=== PATIENT | male | born 1950 | race Caucasian/White ===

== ENCOUNTER → 2016-05-12 | Outpatient (CLI) | payer BC | END | disposition home or self-care (01) | LOC: GMAB 10:12 | PROVIDERS: ATTEND Family Medicine | DX: Z00.00 Encounter for general adult medical examination without abnormal findings (principal) ==

== ENCOUNTER → 2017-06-22 | Outpatient (CLI) | payer MEDICARE, OTHER | LOC: GMAB 11:40 | PROVIDERS: ATTEND Family Medicine | DX: I10 Essential (primary) hypertension (principal); R53.83 Other fatigue; Z12.5 Encounter for screening for malignant neoplasm of prostate | CPT/HCPCS: 84403; 84443; G0103 ==

== ENCOUNTER → 2018-02-14 | Outpatient (CLI) | payer MEDICARE, OTHER ==
--- NOTE | 2018-02-18 13:39 | RAD ---
EXAM DESCRIPTION: Pelvis: CR/DR/XR CLINICAL HISTORY: HIP PN COMPARISON: Radiographs of the left knee on 02/05/2013 TECHNIQUE: One view, AP FINDINGS: No fracture dislocation. Bone density. Bilateral hip joint spaces are symmetric. Enthesophytes on the iliac crest and ischial tuberosities. Posterior bilateral fusion screws L4 and L5. No abnormal radiodense objects in the soft tissues or joint spaces. IMPRESSION: Bony hypertrophic changes as noted. Bilateral hip joint spaces are symmetric. No acute bony or joint margin abnormality. Electronically signed by: Gilmer Magaña MD 02/18/2018 1:37 PM [facility]
== END ==
LOC: RAD 08:07
PROVIDERS: ATTEND Orthopaedic Surgery
DX: M25.551 Pain in right hip (principal)

== ENCOUNTER → 2018-03-15 | Outpatient (CLI) | payer MEDICARE, OTHER ==
--- NOTE | 2018-03-15 12:57 | MRI ---
MRI right knee without contrast INDICATION: Knee pain medial side date of onset not specified TECHNIQUE: Noncontrast MR imaging right knee standard protocol FINDINGS: There is a large joint effusion with synovitis/debris. Up to grade 4 chondrosis of the junction of the medial patellar facet and patellar apex. No subchondral edema. This area measures up to 8 mm wide. Multifocal grade 4 chondrosis across the inferior trochlea midline. Previous interstitial partial tear age-indeterminate PCL. Diffuse interstitial tear ACL partial-thickness. Extensor tendons are intact with only minimal tendinosis and interstitial fissuring distal patellar tendon. Mild prepatellar and superficial infrapatellar bursitis. Ill-defined tear central posterior horn medial meniscus near the root. Osteochondral lesion with subchondral depression and diffuse adjacent marrow edema likely subchondral stress or insufficiency fracture medial femoral condyle 2.5 cm in AP dimension with diffuse grade 4 chondrosis. Diffuse fraying type tear throughout the lateral meniscus body posterior horn and anterior horn with background degenerative signal. Multifocal grade 4 chondrosis in the lateral tibiofemoral compartment. Partial medial meniscal extrusion along the medial jointline. No collateral ligament disruption. Prominent fluid and synovitis/debris popliteus sheath/recess IMPRESSION: Large joint effusion with synovitis Degenerative medial and lateral meniscal tears with partial medial meniscal extrusion Osteochondral lesion with subchondral collapse/impaction medial femoral condyle likely in the spectrum of subchondral stress/insufficiency fracture which is also the spectrum of SONK Multifocal chondrosis up to grade 4 throughout the knee with developing osteoarthrosis Previous interstitial partial tears of the ACL and PCL age-indeterminate Electronically signed by: Niraj Mendiola MD 03/15/2018 12:55 PM [facility]
== END ==
LOC: RAD 10:12
PROVIDERS: ATTEND Orthopaedic Surgery
DX: M17.11 Unilateral primary osteoarthritis, right knee (principal); M25.461 Effusion, right knee; M95.8 Other specified acquired deformities of musculoskeletal system

== ENCOUNTER → 2018-04-04 | Outpatient (CLI) | payer MEDICARE, OTHER | LOC: LAB.O 10:09 | PROVIDERS: ATTEND Orthopaedic Surgery | DX: Z01.818 Encounter for other preprocedural examination (principal) ==

== ENCOUNTER 2018-04-24 05:52 | Inpatient (IN) | payer MEDICARE, OTHER ==
--- NOTE | 2018-04-20 08:23 | HP ---
CHIEF COMPLAINT: Right knee pain. HISTORY OF PRESENT ILLNESS: Ramy is a 67-year-old male with a history of knee pain. He has had conservative measures and has failed to gain relief. Because of his ongoing pain and failure of conservative measures, he has had disruption in his daily function. As such, he has requested operative intervention. After discussing the risks, benefits and alternatives to that, he has given informed consent. PAST SURGICAL HISTORY: 1. Total knee arthroplasty. MEDICATIONS: 1. Lisinopril. 2. Atorvastatin. 3. Meloxicam. ALLERGIES: NO KNOWN DRUG ALLERGIES. FAMILY HISTORY: None pertinent to today's complaint. SOCIAL HISTORY: The patient does not drink, smoke or use any illicit drugs. REVIEW OF SYSTEMS: Negative except as indicated in the History of Present Illness. PHYSICAL EXAMINATION: VITAL SIGNS: Blood pressure 138/92. Pulse 97. Height 6'. Weight 285 pounds. MENTAL STATUS: The patient is awake, alert, and is able to give a good history and participate in the physical. The patient is oriented to person, place and time. SKIN: Normal tone and turgor. HEENT: Normocephalic, atraumatic. Pupils equal, round and reactive. Mucosal membranes are moist. NECK: Normal range of motion. No thyromegaly, no lymphadenopathy. CHEST: Normal respiratory excursion. CARDIAC: Regular rate and rhythm. No murmurs, rubs or gallops. MUSCULOSKELETAL: Both upper extremities show no significant pain with range of motion. He has intact sensation. There is no significant crepitus. Both are warm and well perfused. He has no deformity. Strength is 5/5. The left lower extremity shows full range of motion of the hip. He has good range of motion in the knee without significant discomfort. He has no deformity and no varus/valgus or anterior/posterior laxity. The right lower extremity shows pain with range of motion of the knee, but no pain with range of motion of the hip. He has intact sensation throughout the extremity. It is warm and well perfused. He has no varus/valgus or anterior/posterior laxity. He has crepitus throughout his range of motion. He has full extension and flexion is to about 115 to 120 degrees. IMAGING: X-rays show arthritis. ASSESSMENT: 1. Arthritis. PLAN: The plan at this point is for total knee arthroplasty. We have discussed the risks, benefits, and alternatives to that and the patient has given informed consent. [facility][id number] [facility]
[2018-04-24] MEDS ORDERED: SODIUM CHL 0.9% 100ML MINI-BAG 100 ML IVPB ONE (07:27)
[2018-04-24] MEDS ORDERED: LACTATED RINGERS 1,000 ML ONE ×2 (07:27→13:35)
[2018-04-24] MEDS ORDERED: ceFAZolin SODIUM 1 GM VIAL ONE ×2 (07:28→08:35)
[2018-04-24] MEDS ORDERED: VANCOMYCIN HCL INJ 1,000 MG VIAL IVPB ONE ×2 (07:28→19:50)
[2018-04-24] MEDS ORDERED: SODIUM CHLORIDE 0.9% 250ML 250 ML ONE ×2 (07:28→19:49)
[2018-04-24] MEDS ORDERED: SODIUM CHLORIDE 0.9% 100ML 100 ML IVPB ONE (07:28)
[2018-04-24] MEDS ORDERED: TRANEXAMIC ACID 1,000 MG/10 ML VIAL ONE ×2 (07:28)
[2018-04-24] MEDS ORDERED: fentaNYL CITRATE INJ 50 MCG/ML AMP ONE (08:55)
[2018-04-24] MEDS ORDERED: MORPHINE SULF *EPIDURAL* 1 MG/ML VIAL ONE (08:55)
[2018-04-24] MEDS ORDERED: MIDAZOLAM INJ 2 MG/2 ML VIAL ONE (08:55)
[2018-04-24] MEDS ORDERED: ACETAMINOPHEN IV 1000MG 100 ML ONE (10:32)
[2018-04-24] MEDS: ceFAZolin SODIUM 1 GM VIAL ONE ×2 (11:14→12:04)
[2018-04-24] MEDS: VANCOMYCIN HCL INJ 1,000 MG VIAL IVPB ONE ×2 (11:14→12:04)
[2018-04-24] MEDS: BUPIVACAINE 0.5% 30 ML VIAL INJ ONE ×2 (11:15→12:04)
[2018-04-24] MEDS: BUPIVACAINE LIPOSOME 13.3 MG/ML VIAL INJ ONE ×2 (11:15→12:04)
[2018-04-24] MEDS ORDERED: BUPIVACAINE LIPOSOME 13.3 MG/ML VIAL INJ ONE (12:15)
[2018-04-24] MEDS ORDERED: ZOLPIDEM TARTRATE 5 MG TAB PO PRN (13:01)
[2018-04-24] MEDS ORDERED: ONDANSETRON INJ 4 MG/2 ML VIAL IV PRN (13:01)
[2018-04-24] MEDS ORDERED: ACETAMINOPHEN 500 MG TAB PO PRN (13:01)
[2018-04-24] MEDS ORDERED: BISACODYL SUPPOSITORY 10 MG PR PRN (13:01)
[2018-04-24] MEDS ORDERED: CYCLOBENZAPRINE HCL 10 MG TAB PO PRN (13:01)
[2018-04-24] MEDS ORDERED: ACETAMINOPHEN 325 MG TAB PO PRN (13:01)
[2018-04-24] MEDS ORDERED: SODIUM CHLORIDE 0.9% (FLUSH) 10 ML SYG IV PRN (13:01)
[2018-04-24] MEDS ORDERED: MORPHINE SULFATE INJ 10 MG/ML VIAL IV PRN (13:01)
[2018-04-24] MEDS ORDERED: MAGNESIUM HYDROXIDE 30 ML UD PO PRN (13:01)
[2018-04-24] MEDS ORDERED: BENZOCAINE-MENTH LOZ (CEPACOL) 1 EA LOZ MT PRN (13:01)
[2018-04-24] MEDS ORDERED: DEX 5% W/NACL 0.45% 1000ML 1,000 ML IVS PRN (13:01)
[2018-04-24] MEDS ORDERED: PROMETHAZINE HCL INJ 12.5 MG in SODIUM CHLORIDE 0.9% 50ML 50 ML IVPB PRN (13:01)
[2018-04-24] MEDS ORDERED: traMADol HCL 50 MG TAB PO PRN (13:01)
[2018-04-24] MEDS ORDERED: PROMETHAZINE HCL INJ 25 MG in SODIUM CHLORIDE 0.9% 50ML 50 ML IVPB PRN (13:01)
[2018-04-24] MEDS ORDERED: TRANEXAMIC ACID INJ 1,000 MG in SODIUM CHLORIDE 0.9% 100ML 100 ML IVPB ONE (13:01)
[2018-04-24] MEDS ORDERED: TEMAZEPAM 15 MG CAP PO PRN (13:01)
[2018-04-24] MEDS ORDERED: ALUMINUM & MAGNESIUM HYDROXIDE 30 ML UD PO PRN (13:01)
[2018-04-24] MEDS ORDERED: NALOXONE HCL INJ 0.4 MG/ML VIAL IV PRN (13:01)
[2018-04-24] MEDS ORDERED: MORPHINE SULFATE INJ 10 MG/ML VIAL IM PRN (13:01)
--- NOTE | 2018-04-24 13:14 | RAD ---
EXAM DESCRIPTION: Knee,Right 2 or More Views CLINICAL HISTORY: 67 years Male, post op COMPARISON: MRI right knee 03/15/2018. TECHNIQUE: 2 views of the right knee. IMPRESSION: Status post total right knee arthroplasty. Imaged hardware appears normal in alignment and intact without fracture. No periprosthetic lucency is present to indicate hardware loosening. Postsurgical changes noted in the overlying soft tissues. Electronically signed by: Navjot Vickers MD 04/24/2018 1:13 PM [facility]
[2018-04-24] MEDS ORDERED: MORPHINE PCA 1 MG/ML 100 ML BAG IVPB SCH (13:30)
[2018-04-24] MEDS ORDERED: IV SET AND CAP CHANGE INJ INJ SCH (13:30)
[2018-04-24] MEDS ORDERED: ceFAZolin SODIUM 2 GRAMS PREMI 2 GM in PREMIX BAG 1 BAG IVPB SCH (16:00)
--- NOTE | 2018-04-24 16:09 | CONS ---
SUPERVISING PHYSICIAN: Uzair Dickey MD REASON FOR CONSULTATION: Medical Management. HISTORY OF PRESENT ILLNESS: This is a 67-year-old male patient who underwent a right total knee arthroplasty electively today with no complications. Apparently, he has had right knee pain for quite some time and tried to undergo conservative measures that had failed. As stated above, there are no intraoperative complications. He is postoperative in the med/surgical unit with no distress. He does have a little bit of nausea. The pain is controlled. PAST MEDICAL HISTORY: 1. Hypertension. 2. Hyperlipidemia. PAST SURGICAL HISTORY: 1. Knee arthroscopy. MEDICATIONS: 1. Lisinopril.10 mg p.o. daily. 2. Lipitor 10 mg p.o. daily. ALLERGIES: NO KNOWN DRUG ALLERGIES. FAMILY HISTORY: Both mother and father had cancer, he does not know what kind. SOCIAL HISTORY: The patient does not smoke, social alcohol use. No illegal drugs. REVIEW OF SYSTEMS: Other than the right knee, he has not really had any problems. PHYSICAL EXAMINATION: VITAL SIGNS: Blood pressure 128/88, heart rate 97, respiratory rate 16, temperature 97.8, oxygen saturation 96%. GENERAL: Mr. Cody is a 67 year-old male patient who is in no acute distress currently. CHEST: Lungs are clear to auscultation bilaterally. HEART: Regular rate and rhythm, normal S1 and S2. ABDOMEN: Soft, positive bowel sounds, non-tender to palpation, no organomegaly. GENITOURINARY: Exam is deferred. NEUROLOGIC: The patient is alert and oriented. EXTREMITIES: Right lower extremity is wrapped in an alexy crap as well as currently on a CPM. IMPRESSION: 1. Right knee osteoarthritis status post right total knee arthroplasty. 2. Hypertension. 3. Hyperlipidemia. PLAN: 1. At this time, the patient is admitted for postoperative knee management including physical therapy and pain control. I will resume his home medications as well and address any medical issues that arise during this admission. 2. Will check hemoglobin and hematocrit tomorrow and hopefully he will progress to where he can be discharged home in a few days. Anticoagulation has already been ordered as well and I want to be sure he gets the full anticoagulation that is recommended for postoperative knee surgery. #[id number] [facility]
[2018-04-24] MEDS: CELECOXIB 100 MG CAP PO SCH (17:21)
[2018-04-24] MEDS ORDERED: VANCOMYCIN HCL INJ 1,000 MG in SODIUM CHLORIDE 0.9% 250ML 250 ML IVPB SCH (18:00)
[2018-04-24] MEDS ORDERED: ceFAZolin SODIUM 2 GRAMS PREMI 50 ML IVPB ONE ×2 (18:18→19:50)
[2018-04-24] MEDS: ceFAZolin SODIUM 2 GRAMS PREMI 2 GM in PREMIX BAG 1 BAG IVPB SCH (18:22)
[2018-04-24] MEDS ORDERED: ENOXAPARIN SODIUM 30 MG/0.3 ML SYG SUBCU ONE (19:50)
[2018-04-24] MEDS: VANCOMYCIN HCL INJ 1,000 MG in SODIUM CHLORIDE 0.9% 250ML 250 ML IVPB SCH (20:06)
[2018-04-24] MEDS: DOCUSATE CALCIUM 240 MG CAP PO SCH (20:07)
[2018-04-24] MEDS: ENOXAPARIN SODIUM 30 MG/0.3 ML SYG SUBCU SCH (23:25)
[2018-04-25] MEDS: ceFAZolin SODIUM 2 GRAMS PREMI 2 GM in PREMIX BAG 1 BAG IVPB SCH ×2 (01:59→10:27)
[2018-04-25] MEDS ORDERED: SODIUM CHLORIDE 0.9% 250ML 250 ML ONE (08:06)
[2018-04-25] MEDS ORDERED: VANCOMYCIN HCL INJ 1,000 MG VIAL IVPB ONE (08:07)
[2018-04-25] MEDS: CELECOXIB 100 MG CAP PO SCH ×2 (08:13→17:04)
[2018-04-25] MEDS: VANCOMYCIN HCL INJ 1,000 MG in SODIUM CHLORIDE 0.9% 250ML 250 ML IVPB SCH (08:14)
[2018-04-25] MEDS: MAGNESIUM OXIDE 400 MG TAB PO SCH (08:49)
[2018-04-25] MEDS: LISINOPRIL 10 MG TAB PO SCH (08:49)
[2018-04-25] MEDS: ATORVASTATIN 10 MG TAB PO SCH (08:50)
[2018-04-25] MEDS ORDERED: ceFAZolin SODIUM 2 GRAMS PREMI 50 ML IVPB ONE (10:02)
[2018-04-25] MEDS: ENOXAPARIN SODIUM 30 MG/0.3 ML SYG SUBCU SCH ×2 (10:26→23:26)
[2018-04-25] MEDS ORDERED: raNITIdine HCL INJ 25 MG/ML VIAL IV ONE (13:20)
[2018-04-25] MEDS ORDERED: LIDOCAINE 1% 10 ML VIAL INJ ONE (13:20)
[2018-04-25] MEDS ORDERED: DEXAMETHASONE INJ 10 MG/ML VIAL IV ONE (13:20)
[2018-04-25] MEDS ORDERED: PROPOFOL 200 MG/20 ML VIAL IV ONE (13:20)
[2018-04-25] MEDS ORDERED: METOCLOPRAMIDE HCL INJ 10 MG/2 ML VIAL IV ONE (13:20)
[2018-04-25] MEDS: HYDROcodone 5MG/APAP 325MG 1 EA TAB PO PRN ×2 (13:32→23:45)
[2018-04-25] MEDS ORDERED: PANTOPRAZOLE SODIUM IV 40 MG VIAL IV SCH (15:00)
--- NOTE | 2018-04-25 17:15 | PN ---
DATE: 04/25/18 SUPERVISING PHYSICIAN: Uzair Dickey M.D. SUBJECTIVE: The patient is lying in bed. He has no complaints of nausea, vomiting, diarrhea, chest pain or shortness of breath. Feels like his therapy is going quite well. OBJECTIVE: VITAL SIGNS: Temperature 97.6, heart rate 83, blood pressure 112/69, respiratory rate 18, O2 sat 96% on room air. RESPIRATORY: Essentially clear to auscultation bilaterally. CARDIAC: Regular rate and rhythm. GASTROINTESTINAL: Abdomen is soft, nondistended, non-tender. Bowel sounds are positive. EXTREMITIES: Right leg is in the CPM machine. His dressing is secured with an Get bandage. It is dry and intact. Bilateral pedal pulses are palpable at +2. NEUROLOGIC: He is awake, alert and oriented times three. LABORATORY: Hemoglobin 13.8, hematocrit 41.7. All other labs and films have been reviewed via the EMR. ASSESSMENT: 1. Osteoarthritis of the right knee status post right total knee arthroplasty performed by Dr. Robert Reno. Postoperative day #1. 2. Hypertension. 3. Hyperlipidemia. PLAN: We will continue present supportive care. We will continue with physical therapy for strengthening and conditioning per Physical Therapy. Orthopedic issues will be per Dr. Robert Reno, orthopedic surgeon. I have encouraged good pulmonary hygiene. Will continue to monitor him closely and follow as needed. #[id number] [facility]
--- NOTE | 2018-04-25 19:09 | PN ---
DATE: 04/24/18 POSTOPERATIVE CHECK SUBJECTIVE: He is doing well and has no pain. OBJECTIVE: He is afebrile. Vital signs are stable. Dressing is clean, dry and intact. ASSESSMENT: 1. Status post total knee arthroplasty. PLAN: The plan at this point is for increasing his CPM as tolerated and begin weightbearing starting on postoperative day 1. #[id number] [facility]
--- NOTE | 2018-04-25 19:12 | PN ---
DATE: 04/25/18 SUBJECTIVE: Mr. Cody is doing well. OBJECTIVE: He is afebrile. Vital signs are stable. Dressing is clean, dry and intact. ASSESSMENT: 1. Status post total knee arthroplasty. PLAN: The plan at this point is for him to continue to increase CPM as tolerated and continue on with weightbearing. #[id number] [facility]
[2018-04-25] MEDS: DOCUSATE CALCIUM 240 MG CAP PO SCH (21:29)
[2018-04-26] MEDS: HYDROcodone 5MG/APAP 325MG 1 EA TAB PO PRN (05:17)
[2018-04-26] MEDS: CELECOXIB 100 MG CAP PO SCH (07:22)
--- NOTE | 2018-04-26 08:32 | OP ---
DATE OF PROCEDURE: 04/24/18 PREOPERATIVE DIAGNOSIS: 1. Osteoarthritis of the right knee. POSTOPERATIVE DIAGNOSIS: 1. Osteoarthritis of the right knee. PROCEDURE: 1. Total knee arthroplasty. SURGEON: Robert Reno MD. FITNESS MANAGEMENT DIRECTOR: Gilmer Toledo CST, SA-C. ANESTHESIA: General anesthesia. COMPLICATIONS: None. FINDINGS: Severe osteoarthritis. INDICATION: Mr. Cody has a long history of severe knee pain for which he has attempted and failed conservative measures. Because of his failure of conservative measures, he has requested operative intervention. After discussing the risks, benefits and alternatives to that, the patient has given informed consent for total knee arthroplasty. PROCEDURE: The patient was brought to the Operating Room and placed in supine position. General anesthesia was induced and the patient's leg was sterilely prepped and draped. Following prepping and draping, the distal femur was exposed and using an intramedullary guide, the distal femoral cut was made. The appropriate sized cutting block was measured, pinned into place, and the anterior, posterior, and chamfer cuts were made. The ACL was transected and the tibia was subluxed. Both the medial and lateral menisci were removed. An intramedullary guide was used to make the proximal tibial cut. The appropriate sized base plate was placed and a trial polyethylene was placed. The trial femur was placed, the knee was reduced, and the knee was taken through a range of motion. The knee was stable in anterior, posterior, varus and valgus stress. The patella tracked anatomically without evidence of subluxation or dislocation. After trialing, the trial components were removed and the bony surfaces were thoroughly irrigated with saline. Following irrigation, the surfaces were dried and the final components were cemented into place. The excess cement was removed and the remaining cement was allowed to cure. The knee was again taken through a range of motion to confirm stability. The wound was then irrigated with saline and closure was performed using PDS to approximate the arthrotomy followed by closure of the subcutaneous tissues with a combination of running and interrupted Monocryl sutures. Sterile dressing was placed. The patient was awoken from anesthesia and taken to Recovery. POSTOPERATIVE PLAN: The patient will be weight-bearing as tolerated on postoperative day 1. COMPONENTS: [employer] Triathlon knee, size 6 femur, size 6 tibia, 9 mm insert. [facility][id number] [facility]
[2018-04-26] MEDS ORDERED: SODIUM CHLORIDE 0.9% (FLUSH) 10 ML SYG IV SCH (09:00)
--- NOTE | 2018-04-26 09:12 | PN ---
DATE: 04/26/18 SUBJECTIVE: Mr. Cody is doing well. He is up to a chair and pain is well controlled. OBJECTIVE: Afebrile. Vital signs stable. Wound is clean. There are no signs or symptoms of infection. ASSESSMENT: Status post total knee arthroplasty. PLAN: The plan at this point is for him to likely be discharged today and continue with weightbearing as tolerated. We will see him in 2 weeks. He has been instructed to return immediately should any change in his condition occur. #[id number] [facility]
[2018-04-26] MEDS: ATORVASTATIN 10 MG TAB PO SCH (09:19)
[2018-04-26] MEDS: LISINOPRIL 10 MG TAB PO SCH (09:19)
[2018-04-26] MEDS: MAGNESIUM OXIDE 400 MG TAB PO SCH (09:19)
--- NOTE | 2018-04-26 10:58 | DS ---
SUPERVISING PHYSICIAN: Uzair Dickey MD DISCHARGE DIAGNOSIS: 1. Osteoarthritis of the right knee status post right total knee arthroplasty performed by Dr. Robert Reno. Postoperative day #2. 2. Hypertension. 3. Hyperlipidemia. HISTORY OF PRESENT ILLNESS: This is a 67-year-old male patient who has a history of right knee pain. He had tried conservative measures and those measured had failed. He had elective right total knee arthroplasty performed by Dr. Robert Reno, orthopedic surgeon, on the day of admission. He had no intraoperative complications. HOSPITAL COURSE: He met his goals with physical therapy. He was transitioned off of his IV pain medications to p.o. pain medications. He will be discharged home today in stable condition. LABORATORY: First day postoperative, hemoglobin and hematocrit were 13.8 and 41.7. DISCHARGE PLAN: The patient was discharged home in stable condition. He is to followup with physical therapy at [facility]'s physical therapy department. He will be discharged home on his pain medications, cyclobenzaprine and 9 additional days of Xarelto 10 mg daily. He is to resume his home medications and his previous diet. He is to use NSAIDs with caution until he completes his Xarelto treatment. He is to return to the hospital or followup with Dr. Reno for any problems or complications. DISCHARGE MEDICATIONS: 1. Lisinopril. 2. Atorvastatin. 3. Cyclobenzaprine. 4. Hydrocodone. 5. Xarelto. #[id number] [facility]
[2018-04-26] MEDS: ENOXAPARIN SODIUM 30 MG/0.3 ML SYG SUBCU SCH (11:06)
[2018-04-26 11:09] VITALS: BP 120/74; TEMP 98; O2SAT 94
[2018-04-27] MEDS ORDERED: BISACODYL SUPPOSITORY 10 MG PR ONE (21:00)
[2018-04-27] MEDS ORDERED: MAGNESIUM HYDROXIDE 30 ML UD PO ONE (21:00)
== END 2018-04-26 12:45 | disposition home or self-care (01) | DRG 470 ==
LOC: AMB 05:52 → MS 12:45
PROVIDERS: ADMIT Orthopaedic Surgery; ATTEND Nurse Practitioner Acute Care
PROC: 0SRC0J9 Replacement of Right Knee Joint with Synthetic Substitute, Cemented, Open Approach (ICD-10-PCS; principal; 2018-04-24 10:16)
DX: M17.11 Unilateral primary osteoarthritis, right knee (principal); I10 Essential (primary) hypertension; E78.5 Hyperlipidemia, unspecified

== ENCOUNTER → 2018-07-26 | Outpatient (CLI) | payer MEDICARE, OTHER | LOC: GMAE 10:36 | PROVIDERS: ATTEND Family Medicine | DX: I10 Essential (primary) hypertension (principal); Z12.5 Encounter for screening for malignant neoplasm of prostate | CPT/HCPCS: 84443; G0103 ==

== ENCOUNTER → 2019-10-22 | Outpatient (CLI) | payer MEDICARE, OTHER | LOC: GMAE 10:42 | PROVIDERS: ATTEND Family Medicine | DX: R97.20 Elevated prostate specific antigen [PSA] (principal); I10 Essential (primary) hypertension; E78.2 Mixed hyperlipidemia ==